=== PATIENT | male | born 1990 | race Caucasian/White ===

== ENCOUNTER 2025-02-19 19:33 | Emergency (ER) | payer SELFPAY ==
[~2025-02-19] VITALS: Ht 172.7 cm; Wt 73.0 kg
[2025-02-19 19:54] VITALS: BP 162/113; PULSE 108; RESP 18; TEMP 36.9; O2SAT 99
== END 2025-02-19 21:00 | disposition left against medical advice (07) ==
LOC: ER 19:33
DX: F10.129 Alcohol abuse with intoxication, unspecified (principal); Z53.21 Procedure and treatment not carried out due to patient leaving prior to being seen by health care provider; Y90.9 Presence of alcohol in blood, level not specified